=== PATIENT | female | born 1985 | race American Indian/Alaskan Native ===

== ENCOUNTER 2020-10-13 06:14 | Observation (INO) | payer BC ==
[2020-10-13 07:55] LABS: Basophils % (Auto) 0.6 % (0.0-1.8); Eosinophils % (Auto) 0.3 % (0.0-4.3); Hemoglobin 14.1 gm/dl (10.1-14.3); Lymphocytes # (Auto) 1.5 K/mm3 (1.2-5.4); Lymphocytes % (Auto) 18.6 % (13.4-35.0); Mean Corpuscular HGB Conc 34 % (30-34); Mean Corpuscular Volume 85 fl (79-97); Monocytes # (Auto) 0.4 K/mm3 (0.0-0.8); Platelet Count 160 K/mm3 (140-440); Red Blood Count 4.91 M/mm3 (3.65-5.03); Red Cell Distribution Width 13.7 % (13.2-15.2)
[2020-10-13 08:13] LABS: Albumin 4.5 g/dL (3.9-5); Calcium 9.5 mg/dL (8.4-10.2)
[2020-10-13 08:19] LABS: Bilirubin,Urine NEG (Negative); Blood,Urine NEG (Negative); Color,Urine Yellow (Yellow); Protein,Urine <15 mg/dL mg/dL (Negative); Urobilinogen,Urine < 2.0 mg/dL (<2.0)
[2020-10-13 08:24] LABS: HCG Qualitative,Urine Negative (Negative)
[2020-10-13] MEDS ORDERED: ONDANSETRON 4 MG/2 ML INJ IV ONE ×2 (08:28→10:57)
[2020-10-13] MEDS ORDERED: FAMOTIDINE 20 MG/2 ML INJ IV ONE (08:28)
[2020-10-13] MEDS ORDERED: MORPHINE 4 MG/1 ML INJ IV ONE (08:28)
[2020-10-13] MEDS ORDERED: DICYCLOMINE 20 MG TAB PO ONE (08:28)
[2020-10-13] MEDS ORDERED: SODIUM CHLORIDE 0.9% 1000 ML 1,000 ML IV ONE (08:28)
--- NOTE | 2020-10-13 09:21 | Emergency Department Report ---
ED Abdominal Pain HPI - General Chief Complaint: Abdominal Pain Stated Complaint: ABD PAIN Time Seen by Provider: 10/13/20 08:22 Source: patient Mode of arrival: Ambulatory Limitations: No Limitations - History of Present Illness Initial Comments: This is a 35-year-old female nontoxic, well nourished in appearance, no acute signs of distress presents to the ED with c/o of nausea and vomiting and abdominal pain several days. Patient describes vomiting as food content and yellow gastric acid. Patient describes abdominal pain as cramping and aching with level of 3/10 diffuse. Patient denies chest pain, short of breath, fever, hemoptysis, blood in stool, chills, headache, stiff neck, numbness or tingling. Patient denies any diarrhea or constipation. Denies any blood in stool. Patient denies any recent travels. Patient denies any allergies. MD Complaint: abdominal pain -: days(s) Location: diffuse Radiation: none Migration to: no migration Severity: mild Severity scale (0 -10): 8 Quality: cramping, aching Consistency: constant Improves With: nothing Worsens With: nothing Associated Symptoms: nausea, vomiting. denies: diarrhea, fever, chills, constipation, dysuria, hematemesis, hematochezia, melena, hematuria, anorexia, syncope - Related Data Home Medications Medication Instructions Recorded Confirmed Last Taken No Known Home Medications [No 10/13/20 10/13/20 Unknown Reported Home Medications] Allergies Allergy/AdvReac Type Severity Reaction Status Date / Time No Known Allergies Allergy Unverified 10/13/20 07:27 ED Review of Systems ROS: Stated complaint: ABD PAIN Other details as noted in HPI Constitutional: denies: chills, fever Eyes: denies: eye pain, eye discharge, vision change ENT: denies: ear pain, throat pain Respiratory: denies: cough, shortness of breath, wheezing Cardiovascular: denies: chest pain, palpitations Endocrine: no symptoms reported Gastrointestinal: abdominal pain, nausea, vomiting. denies: diarrhea, constipation, hematemesis, melena, hematochezia Genitourinary: denies: urgency, dysuria, discharge Musculoskeletal: denies: back pain, joint swelling, arthralgia Skin: denies: rash, lesions Neurological: denies: headache, weakness, paresthesias Psychiatric: denies: anxiety, depression Hematological/Lymphatic: denies: easy bleeding, easy bruising ED Past Medical Hx - Past Medical History Previous Medical History?: No - Surgical History Past Surgical History?: No - Social History Smoking Status: Never Smoker Substance Use Type: None - Medications Home Medications: Home Medications Medication Instructions Recorded Confirmed Last Taken Type No Known Home Medications [No 10/13/20 10/13/20 Unknown History Reported Home Medications] ED Physical Exam - General Limitations: No Limitations General appearance: alert, in no apparent distress - Head Head exam: Present: atraumatic, normocephalic - Eye Eye exam: Present: normal appearance - Neck Neck exam: Present: normal inspection, full ROM. Absent: tenderness, meningismus, lymphadenopathy - Respiratory Respiratory exam: Present: normal lung sounds bilaterally. Absent: respiratory distress, wheezes, rales, rhonchi, stridor, chest wall tenderness, accessory muscle use, decreased breath sounds, prolonged expiratory - Cardiovascular Cardiovascular Exam: Present: regular rate, normal rhythm, normal heart sounds. Absent: irregular rhythm, systolic murmur, diastolic murmur, rubs, gallop - GI/Abdominal GI/Abdominal exam: Present: soft, tenderness (RLQ pain), normal bowel sounds. Absent: distended, guarding, rebound, rigid, diminished bowel sounds - Extremities Exam Extremities exam: Present: normal inspection, full ROM, normal capillary refill. Absent: tenderness - Back Exam Back exam: Present: normal inspection, full ROM. Absent: tenderness, CVA tenderness (R), CVA tenderness (L), muscle spasm, paraspinal tenderness, vertebral tenderness, rash noted - Neurological Exam Neurological exam: Present: alert, oriented X3, normal gait - Psychiatric Psychiatric exam: Present: normal affect, normal mood - Skin Skin exam: Present: warm, dry, intact, normal color. Absent: rash ED Course Vital Signs 10/13/20 07:27 Temperature 98.3 F Pulse Rate 49 L Respiratory 18 Rate Blood Pressure 127/77 O2 Sat by Pulse 100 Oximetry - Reevaluation(s) Reevaluation #1: 10/13/20 09:39 Patient is speaking in full sentences with no signs of distress noted. - Consultations Consultation #1: 10/13/20 11:13 Patient has been consulted with Dr. Reyes about patient history, physical exam, and labs/CT results and agrees for admission. Consultation #2: 10/13/20 11:14 Patient has been consulted with Dr. Jeronimo (hospitalist) about patient history, physical exam, and labs/CT results and accepts patient to services. ED Medical Decision Making - Lab Data Result diagrams: 10/13/20 07:43 10/13/20 07:43 Lab Results 10/13/20 10/13/20 10/13/20 Range/Units 07:43 07:43 Unknown WBC 7.9 (4.5-11.0) K/mm3 RBC 4.91 (3.65-5.03) M/mm3 Hgb 14.1 (10.1-14.3) gm/dl Hct 42.0 (30.3-42.9) % MCV 85 (79-97) fl MCH 29 (28-32) pg MCHC 34 (30-34) % RDW 13.7 (13.2-15.2) % Plt Count 160 (140-440) K/mm3 Lymph % (Auto) 18.6 (13.4-35.0) % Mchenry % (Auto) 5.0 (0.0-7.3) % Eos % (Auto) 0.3 (0.0-4.3) % Baso % (Auto) 0.6 (0.0-1.8) % Lymph # (Auto) 1.5 (1.2-5.4) K/mm3 Mchenry # (Auto) 0.4 (0.0-0.8) K/mm3 Eos # (Auto) 0.0 (0.0-0.4) K/mm3 Baso # (Auto) 0.0 (0.0-0.1) K/mm3 Seg Neutrophils % 75.5 H (40.0-70.0) % Seg Neutrophils # 6.0 (1.8-7.7) K/mm3 Sodium 133 L (137-145) mmol/L Potassium 4.1 (3.6-5.0) mmol/L Chloride 102.2 (98-107) mmol/L Carbon Dioxide 24 (22-30) mmol/L Anion Gap 11 mmol/L BUN 12 (7-17) mg/dL Creatinine 1.1 (0.6-1.2) mg/dL Estimated GFR 56 ml/min BUN/Creatinine Ratio 11 % Glucose 123 H (65-100) mg/dL Calcium 9.5 (8.4-10.2) mg/dL Total Bilirubin 0.90 (0.1-1.2) mg/dL AST 18 (5-40) units/L ALT 17 (7-56) units/L Alkaline Phosphatase 74 (35-129) units/L Total Protein 8.2 (6.3-8.2) g/dL Albumin 4.5 (3.9-5) g/dL Albumin/Globulin Ratio 1.2 % Urine Color Yellow (Yellow) Urine Turbidity Clear (Clear) Urine pH 5.0 (5.0-7.0) Ur Specific Welcome 1.013 (1.003-1.030) Urine Protein <15 mg/dl (Negative) mg/dL Urine Glucose (UA) Neg (Negative) mg/dL Urine Ketones Neg (Negative) mg/dL Urine Blood Neg (Negative) Urine Nitrite Neg (Negative) Urine Bilirubin Neg (Negative) Urine Urobilinogen < 2.0 (<2.0) mg/dL Ur Leukocyte Esterase Neg (Negative) Urine WBC (Auto) 1.0 (0.0-6.0) /HPF Urine RBC (Auto) 2.0 (0.0-6.0) /HPF U Epithel Cells (Auto) 2.0 (0-13.0) /HPF Urine HCG, Qual Negative (Negative) - Radiology Data Referring Physician: CINTHYA GOLDMAN Patient Name: JOSE JEONG Date of : 1985 Sex: Female Report Date: 2020-10-13 Report Status: [place] [address] Cat Scan Report Signed Patient: JOSE JEONG MR#: [id number] : 1985 Acct:[id number] Age/Sex: 35 / F ADM Date: 10/13/20 Loc: ED Attending Dr: Ordering Physician: CINTHYA GOLDMAN NP Date of Service: 10/13/20 Procedure(s): CT abdomen pelvis w con Accession Number(s): [id number] cc: CINTHYA GOLDMAN NP CT ABDOMEN AND PELVIS WITH CONTRAST INDICATION / CLINICAL INFORMATION: MAIN. Right lower quadrant pain with nausea and vomiting for one day. TECHNIQUE: Axial CT images were obtained through the abdomen and pelvis after IV contrast. All CT scans at this location are performed using CT dose reduction for ALARA by means of automated exposure control. COMPARISON: None available. FINDINGS: LOWER CHEST: No significant abnormality. LIVER: No significant abnormality. GALLBLADDER: No significant abnormality. BILE DUCTS: No significant abnormality. PANCREAS: No significant abnormality. SPLEEN: No significant abnormality. ADRENALS: No significant abnormality. RIGHT KIDNEY / URETER: No significant abnormality. LEFT KIDNEY / URETER: No significant abnormality. STOMACH / SMALL BOWEL: No significant abnormality. COLON: No significant abnormality. APPENDIX: Retrocecal appendix. Inflammatory changes are noted of the appendix which is fluid filled and distended measuring 1.2 cm in cross sectional diameter. There is moderate periappendiceal fat stranding. No evidence of secondary complication. PERITONEUM: No free fluid. No free air. No fluid collection. LYMPH NODES: No significant adenopathy. AORTA / ARTERIES: No significant abnormality. IVC / VEINS: No significant abnormality. URINARY BLADDER: No significant abnormality. REPRODUCTIVE ORGANS: IUD is noted. Small 1.2 cm uterine fibroid. ADDITIONAL FINDINGS: None. SKELETAL SYSTEM: No significant abnormality. IMPRESSION: 1. Acute uncomplicated appendicitis. No evidence of pneumoperitoneum or complex peritoneal fluid collection. Signer Name: Ivonne Bernard MD Signed: 10/13/2020 10:18 AM Workstation Name: [email or web address] [id number] Transcribed By: Dictated By: IVONNE BERNARD Electronically Authenticated By: IVONNE BERNARD Signed Date/Time: 10/13/20 1018 DD/ 1014 TD/TT: - Medical Decision Making 36-year-old female that presents with acute appendicitis. Patient is stable and was examined by me. Patient admitted with hospitalist. Patient consulted with surgery which stated patient will be going to surgery. Patient placed on n.p.o. IV antibiotics initiated. Vital signs stable. At time of admission, the patient does not seem toxic or ill in appearance. No acute signs of distress noted. Patient agrees to admission treatment plan of care. No further questions noted by the patient. Critical care attestation.: If time is entered above; I have spent that time in minutes in the direct care of this critically ill patient, excluding procedure time. ED Disposition Clinical Impression: Acute appendicitis Qualifiers: Acute appendicitis type: unspecified acute appendicitis type Qualified Code(s): K35.80 - Unspecified acute appendicitis Disposition: DC-09 OP ADMIT IP TO THIS HOSP Is pt being admited?: Yes Condition: Stable Instructions: Abdominal Pain (ED)
--- NOTE | 2020-10-13 10:22 | Cat Scan Report ---
CT ABDOMEN AND PELVIS WITH CONTRAST INDICATION / CLINICAL INFORMATION: MAIN. Right lower quadrant pain with nausea and vomiting for one day. TECHNIQUE: Axial CT images were obtained through the abdomen and pelvis after IV contrast. All CT scans at this location are performed using CT dose reduction for ALARA by means of automated exposure control. COMPARISON: None available. FINDINGS: LOWER CHEST: No significant abnormality. LIVER: No significant abnormality. GALLBLADDER: No significant abnormality. BILE DUCTS: No significant abnormality. PANCREAS: No significant abnormality. SPLEEN: No significant abnormality. ADRENALS: No significant abnormality. RIGHT KIDNEY / URETER: No significant abnormality. LEFT KIDNEY / URETER: No significant abnormality. STOMACH / SMALL BOWEL: No significant abnormality. COLON: No significant abnormality. APPENDIX: Retrocecal appendix. Inflammatory changes are noted of the appendix which is fluid filled a nd distended measuring 1.2 cm in cross sectional diameter. There is moderate periappendiceal fat stra nding. No evidence of secondary complication. PERITONEUM: No free fluid. No free air. No fluid collection. LYMPH NODES: No significant adenopathy. AORTA / ARTERIES: No significant abnormality. IVC / VEINS: No significant abnormality. URINARY BLADDER: No significant abnormality. REPRODUCTIVE ORGANS: IUD is noted. Small 1.2 cm uterine fibroid. ADDITIONAL FINDINGS: None. SKELETAL SYSTEM: No significant abnormality. IMPRESSION: 1. Acute uncomplicated appendicitis. No evidence of pneumoperitoneum or complex peritoneal fluid dorota ection. Signer Name: Jude Mcqueen MD Signed: 10/13/2020 10:18 AM Workstation Name: [email or web address]
[2020-10-13] MEDS ORDERED: PIPERACIL/TAZOBACTA 4.5/NS 100 4.5 GM/100 ML VIAL IV ONE (10:32)
[2020-10-13] MEDS ORDERED: ONDANSETRON 4 MG/2 ML INJ ONE ×2 (10:57→12:49)
--- NOTE | 2020-10-13 11:36 | History and Physical Report ---
History of Present Illness Chief complaint: My stomach hurts History of present illness: 35 YO Female with No PMH presents to ED for evaluation. Patient states that she has experienced abdominal pain over the past week with persistent symptoms over the same timeframe. Patient states that pain is 78/10, initially intermittent, but is now more constant. Patient acknowledges nausea, multiple episodes of vomiting, as well as inability to tolerate oral intake. Patient transported to [facility] via private vehicle for further care and evaluation of the aforementioned symptoms. Patient seen and evaluated in the emergency department. All lab and imaging studies reviewed. Patient underwent CT scan of the abdomen and pelvis and was found to have acute appendicitis. Patient placed in observation status and admitted to surgical floor. Surgical team consulted in ED. Patient is pending surgical intervention. Patient denies fever, chills, chest pain, palpitation, productive cough, skin rash, recent ill contacts, ingestion of food/water from new or different sources, or known exposure to COVID-19. No prior admission for review. No medication listed at time of admission for reconciliation. Past History Past Medical History: No medical history, other (Reviewed) Past Surgical History: No surgical history, Other (Reviewed) Social history: single. denies: smoking, alcohol abuse, prescription drug abuse Family history: hypertension Medications and Allergies Allergies Allergy/AdvReac Type Severity Reaction Status Date / Time No Known Allergies Allergy Unverified 10/13/20 07:27 Home Medications Medication Instructions Recorded Confirmed Last Taken Type No Known Home Medications [No 10/13/20 10/13/20 Unknown History Reported Home Medications] Review of Systems Constitutional: no weight loss, no weight gain, no fever, no chills Ears, nose, mouth and throat: no ear pain, no ear discharge, no tinnitis, no decreased hearing Breasts: no change in shape, no swelling, no mass Cardiovascular: no chest pain, no orthopnea, no palpitations, no rapid/irregular heart beat Respiratory: no cough, no cough with sputum Gastrointestinal: abdominal pain, nausea, vomiting, no constipation, no change in bowel habits, no BRBPR, no melena, no hematochezia Genitourinary Female: no pelvic pain, no flank pain, no menorrhagia, no dysuria, no urinary frequency, no urgency Rectal: no pain, no incontinence Musculoskeletal: no neck stiffness, no neck pain, no shooting arm pain, no arm numbness/tingling Integumentary: no rash, no pruritis, no redness, no sores, no wounds Neurological: no transient paralysis, no paralysis, no weakness, no parathesias, no numbness, no tingling Psychiatric: no anxiety, no change in sleep habits, no insomnia, no hypersomnia, no change in libido, no suicidal ideation, no disorientation Endocrine: no cold intolerance, no polyphagia, no excessive thirst, no polyuria, no nocturia Hematologic/Lymphatic: no easy bruising, no easy bleeding, no lymphadenopathy, no lymphedema Allergic/Immunologic: no persistent infections, no anaphylaxis Exam - Constitutional Vitals: Temp Pulse Resp BP Pulse Ox 98.3 F 49 L 18 127/77 100 10/13/20 07:27 10/13/20 07:27 10/13/20 07:27 10/13/20 07:27 10/13/20 07:27 General appearance: Present: mild distress - EENT Eyes: Present: PERRL ENT: hearing intact, clear oral mucosa - Neck Neck: Present: supple, normal ROM - Respiratory Respiratory effort: normal Respiratory: bilateral: CTA - Cardiovascular Heart Sounds: Present: S1 & S2. Absent: rub, click - Extremities Extremities: pulses symmetrical, No edema Peripheral Pulses: within normal limits - Abdominal General gastrointestinal: Present: soft, tender, non-distended, normal bowel sounds Localized gastrointestinal: tender: RLQ Female genitourinary: Present: normal - Integumentary Integumentary: Present: clear, warm, dry - Musculoskeletal Musculoskeletal: gait normal, strength equal bilaterally - Psychiatric Psychiatric: appropriate mood/affect, intact judgment & insight - Neurologic Neurologic: CNII-XII intact, moves all extremities Results - Labs CBC & Chem 7: 10/13/20 07:43 10/13/20 07:43 Labs: Abnormal lab results 10/13/20 10/13/20 Range/Units 07:43 07:43 Seg Neutrophils % 75.5 H (40.0-70.0) % Sodium 133 L (137-145) mmol/L Glucose 123 H (65-100) mg/dL Assessment and Plan - Patient Problems (1) Acute appendicitis Current Visit: Yes Status: Acute Qualifiers: Acute appendicitis type: unspecified acute appendicitis type Qualified Code(s): K35.80 - Unspecified acute appendicitis Plan to address problem: CBC, CMP, chest x-ray, urinalysis, CT scan abdomen and pelvis, IV antibiotic therapy, surgical team consulted, patient is pending surgical intervention at this time. (2) DVT prophylaxis Current Visit: Yes Status: Acute Plan to address problem: SCD to bilateral lower extremities while in bed, patient is ambulatory
[2020-10-13] MEDS ORDERED: MORPHINE 2 MG/1 ML INJ IV PRN (11:37)
[2020-10-13] MEDS ORDERED: ALBUTEROL 2.5 MG/3 ML NEBU IH PRN (11:37)
[2020-10-13] MEDS ORDERED: ONDANSETRON 4 MG/2 ML INJ IV PRN ×2 (11:37→15:09)
[2020-10-13] MEDS ORDERED: ACETAMINOPHEN 325 MG TAB PO PRN (11:37)
[2020-10-13] MEDS ORDERED: BUPIVACAINE/PF (0.5%) 5 MG/1 ML 30 ML VIAL INFILTRATI ONE ×3 (12:25→14:14)
[2020-10-13] MEDS ORDERED: LIDOCAINE (1%) 10 MG/1 ML VIAL 20 ML MDV ONE (12:25)
--- NOTE | 2020-10-13 12:35 | Consultation ---
History of Present Illness Consult date: 10/13/20 Reason for consult: abdominal pain (Pt with abd pain (RLQ) for one day) Medications and Allergies Allergies Allergy/AdvReac Type Severity Reaction Status Date / Time No Known Allergies Allergy Unverified 10/13/20 07:27 Home Medications Medication Instructions Recorded Confirmed Last Taken Type No Known Home Medications [No 10/13/20 10/13/20 Unknown History Reported Home Medications] Active Meds: Active Medications Acetaminophen (Tylenol) 650 mg PO Q4H PRN PRN Reason: Pain MILD(1-3)/Fever >100.5/PRETTY Albuterol (Proventil) 2.5 mg IH Q4HRT PRN PRN Reason: Shortness Of Breath Hydromorphone HCl (Dilaudid) 0.5 mg IV Q6H PRN PRN Reason: Pain , Severe (7-10) Sodium Chloride (Nacl 0.9% 1000 Ml) 1,000 mls @ 125 mls/hr IV DIRECT KATLYN Morphine Sulfate (Morphine) 2 mg IV Q4H PRN PRN Reason: Pain, Moderate (4-6) Ondansetron HCl (Zofran) 4 mg IV Q8H PRN PRN Reason: Nausea And Vomiting Sodium Chloride (Sodium Chloride Flush Syringe 10 Ml) 10 ml IV BID KATLYN Sodium Chloride (Sodium Chloride Flush Syringe 10 Ml) 10 ml IV PRN PRN PRN Reason: LINE FLUSH Exam Vital Signs Temp Pulse Resp BP Pulse Ox 98.3 F 49 L 18 127/77 100 10/13/20 07:27 10/13/20 07:27 10/13/20 07:27 10/13/20 07:27 10/13/20 07:27 - Abdomen Abdomen: Present: soft, tender, bowel sounds normal. Absent: distended, surgical scars (+TTP RLQ; no peritoneal signs) Results - Labs 10/13/20 07:43 10/13/20 07:43 Abnormal lab results 10/13/20 10/13/20 Range/Units 07:43 07:43 Seg Neutrophils % 75.5 H (40.0-70.0) % Sodium 133 L (137-145) mmol/L Glucose 123 H (65-100) mg/dL Diabetes panel 10/13/20 Range/Units 07:43 Sodium 133 L (137-145) mmol/L Potassium 4.1 (3.6-5.0) mmol/L Chloride 102.2 (98-107) mmol/L Carbon Dioxide 24 (22-30) mmol/L BUN 12 (7-17) mg/dL Creatinine 1.1 (0.6-1.2) mg/dL Glucose 123 H (65-100) mg/dL Calcium 9.5 (8.4-10.2) mg/dL AST 18 (5-40) units/L ALT 17 (7-56) units/L Alkaline Phosphatase 74 (35-129) units/L Total Protein 8.2 (6.3-8.2) g/dL Albumin 4.5 (3.9-5) g/dL Calcium panel 10/13/20 Range/Units 07:43 Calcium 9.5 (8.4-10.2) mg/dL Albumin 4.5 (3.9-5) g/dL Pituitary panel 10/13/20 Range/Units 07:43 Sodium 133 L (137-145) mmol/L Potassium 4.1 (3.6-5.0) mmol/L Chloride 102.2 (98-107) mmol/L Carbon Dioxide 24 (22-30) mmol/L BUN 12 (7-17) mg/dL Creatinine 1.1 (0.6-1.2) mg/dL Glucose 123 H (65-100) mg/dL Calcium 9.5 (8.4-10.2) mg/dL Adrenal panel 10/13/20 Range/Units 07:43 Sodium 133 L (137-145) mmol/L Potassium 4.1 (3.6-5.0) mmol/L Chloride 102.2 (98-107) mmol/L Carbon Dioxide 24 (22-30) mmol/L BUN 12 (7-17) mg/dL Creatinine 1.1 (0.6-1.2) mg/dL Glucose 123 H (65-100) mg/dL Calcium 9.5 (8.4-10.2) mg/dL Total Bilirubin 0.90 (0.1-1.2) mg/dL AST 18 (5-40) units/L ALT 17 (7-56) units/L Alkaline Phosphatase 74 (35-129) units/L Total Protein 8.2 (6.3-8.2) g/dL Albumin 4.5 (3.9-5) g/dL Assessment and Plan Acute appendicitis-- to OR for lap appy Risks d/w pt to include abscess, stump leak, hernia, blood clots, etc
[2020-10-13] MEDS ORDERED: ePHEDrine SULFATE 50 MG/1 ML INJ ONE (12:36)
[2020-10-13] MEDS ORDERED: ROCURONIUM 50 MG/5 ML INJ IV ONE (12:49)
[2020-10-13] MEDS ORDERED: propofoL 200 MG/20 ML VIAL IV ONE (12:49)
[2020-10-13] MEDS ORDERED: dexAMETHasone 20 MG/5 ML VIAL ONE (12:49)
[2020-10-13] MEDS ORDERED: GLYCOPYRROLATE 0.4 MG/2 ML INJ ONE ×2 (12:49→13:00)
[2020-10-13] MEDS ORDERED: SUCCINYLCHOLINE CHLORIDE 200 MG/10 ML INJ MDV ONE (12:49)
[2020-10-13] MEDS ORDERED: NEOSTIGMINE 10MG/10 ML INJ MDV ONE (12:49)
[2020-10-13] MEDS ORDERED: fentaNYL 100 MCG/2 ML INJ ONE (12:50)
[2020-10-13] MEDS ORDERED: LIDOCAINE MPF (2%) 20 MG/1 ML VIAL 5 ML ONE (13:00)
--- NOTE | 2020-10-13 13:20 | Anesthesia Consultation ---
Anesthesia Consult and Med Hx Date of service: 10/13/20 - Airway Anesthetic Teeth Evaluation: Good ROM Head & Neck: Adequate Mental/Hyoid Distance: Adequate Mallampati Class: Class II Intubation Access Assessment: Good - Pre-Operative Health Status ASA Pre-Surgery Classification: ASA1, Emergency Proposed Anesthetic Plan: General - Pulmonary Hx Smoking: No Hx Asthma: No Hx Respiratory Symptoms: No SOB: No COPD: No Home Oxygen Therapy: No Hx Pneumonia: No Hx Sleep Apnea: No - Cardiovascular System Hx Hypertension: No Hx Coronary Artery Disease: No Hx Heart Attack/AMI: No Hx Angina: No Hx Percutaneous Transluminal Coronary Angioplasty (PTCA): No Hx Cardia Arrhythmia: No Hx Pacemaker: No Hx Internal Defibrillator: No Hx Valvular Heart Disease: No Hx Heart Murmur: No Hx Peripheral Vascular Disease: No - Central Nervous System Hx Neuromuscular Disorder: No Hx Seizures: No CVA: No Hx Back Pain: No Hx Psychiatric Problems: No - Gastrointestinal Hx Ulcer: No Hx Gastroesophageal Reflux Disease: No - Endocrine Hx Renal Disease: No Hx End Stage Renal Disease: No Hx Cirrhosis: No Hx Liver Disease: No Hx Insulin Dependent Diabetes: No Hx Non-Insulin Dependent Diabetes: No Hx Thyroid Disease: No Hx Hypothyroidism: No Hx Hyperthyroidism: No - Hematic Hx Anemia: No Hx Sickle Cell Disease: No - Other Systems Hx Alcohol Use: Yes (socially ) Hx Substance Use: No Hx Cancer: No Hx Obesity: No
--- NOTE | 2020-10-13 13:21 | Anesthesia Day of Surgery ---
Anesthesia Day of Surgery - Day of Surgery Patient Examined: Yes Patient H&P Reviewed: Yes Patient is NPO: Yes
--- NOTE | 2020-10-13 13:26 | Progress Note ---
Subjective Date of service: 10/13/20 Narrative: pt looks good; c/o back pain; minimal to no abd discomfort Pt begging to be moved/placed in chair-- apparently RN had refused to do so as there was no activity order placed. 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 Thoracic aorta abnormality on CT chest-- see Dr. Del Valle's note; NTD Chronic back pain--- RN instructed to get pt out of bed to chair luis Objective Vital Signs - 12hr 10/13/20 10/13/20 07:27 13:06 Temperature 98.3 F Pulse Rate 49 L 51 L Respiratory 18 16 Rate Blood Pressure 127/77 Blood Pressure 121/71 [Left] O2 Sat by Pulse 100 100 Oximetry - Labs 10/13/20 07:43 10/13/20 07:43 Diabetes panel 10/13/20 Range/Units 07:43 Sodium 133 L (137-145) mmol/L Potassium 4.1 (3.6-5.0) mmol/L Chloride 102.2 (98-107) mmol/L Carbon Dioxide 24 (22-30) mmol/L BUN 12 (7-17) mg/dL Creatinine 1.1 (0.6-1.2) mg/dL Glucose 123 H (65-100) mg/dL Calcium 9.5 (8.4-10.2) mg/dL AST 18 (5-40) units/L ALT 17 (7-56) units/L Alkaline Phosphatase 74 (35-129) units/L Total Protein 8.2 (6.3-8.2) g/dL Albumin 4.5 (3.9-5) g/dL Calcium panel 10/13/20 Range/Units 07:43 Calcium 9.5 (8.4-10.2) mg/dL Albumin 4.5 (3.9-5) g/dL Pituitary panel 10/13/20 Range/Units 07:43 Sodium 133 L (137-145) mmol/L Potassium 4.1 (3.6-5.0) mmol/L Chloride 102.2 (98-107) mmol/L Carbon Dioxide 24 (22-30) mmol/L BUN 12 (7-17) mg/dL Creatinine 1.1 (0.6-1.2) mg/dL Glucose 123 H (65-100) mg/dL Calcium 9.5 (8.4-10.2) mg/dL Adrenal panel 10/13/20 Range/Units 07:43 Sodium 133 L (137-145) mmol/L Potassium 4.1 (3.6-5.0) mmol/L Chloride 102.2 (98-107) mmol/L Carbon Dioxide 24 (22-30) mmol/L BUN 12 (7-17) mg/dL Creatinine 1.1 (0.6-1.2) mg/dL Glucose 123 H (65-100) mg/dL Calcium 9.5 (8.4-10.2) mg/dL Total Bilirubin 0.90 (0.1-1.2) mg/dL AST 18 (5-40) units/L ALT 17 (7-56) units/L Alkaline Phosphatase 74 (35-129) units/L Total Protein 8.2 (6.3-8.2) g/dL Albumin 4.5 (3.9-5) g/dL
--- NOTE | 2020-10-13 13:33 | Progress Note ---
Assessment and Plan last note on wrong pt-- sorry. Subjective Date of service: 10/13/20 Objective Vital Signs - 12hr 10/13/20 10/13/20 07:27 13:06 Temperature 98.3 F Pulse Rate 49 L 51 L Respiratory 18 16 Rate Blood Pressure 127/77 Blood Pressure 121/71 [Left] O2 Sat by Pulse 100 100 Oximetry - Labs 10/13/20 07:43 10/13/20 07:43 Diabetes panel 10/13/20 Range/Units 07:43 Sodium 133 L (137-145) mmol/L Potassium 4.1 (3.6-5.0) mmol/L Chloride 102.2 (98-107) mmol/L Carbon Dioxide 24 (22-30) mmol/L BUN 12 (7-17) mg/dL Creatinine 1.1 (0.6-1.2) mg/dL Glucose 123 H (65-100) mg/dL Calcium 9.5 (8.4-10.2) mg/dL AST 18 (5-40) units/L ALT 17 (7-56) units/L Alkaline Phosphatase 74 (35-129) units/L Total Protein 8.2 (6.3-8.2) g/dL Albumin 4.5 (3.9-5) g/dL Calcium panel 10/13/20 Range/Units 07:43 Calcium 9.5 (8.4-10.2) mg/dL Albumin 4.5 (3.9-5) g/dL Pituitary panel 10/13/20 Range/Units 07:43 Sodium 133 L (137-145) mmol/L Potassium 4.1 (3.6-5.0) mmol/L Chloride 102.2 (98-107) mmol/L Carbon Dioxide 24 (22-30) mmol/L BUN 12 (7-17) mg/dL Creatinine 1.1 (0.6-1.2) mg/dL Glucose 123 H (65-100) mg/dL Calcium 9.5 (8.4-10.2) mg/dL Adrenal panel 10/13/20 Range/Units 07:43 Sodium 133 L (137-145) mmol/L Potassium 4.1 (3.6-5.0) mmol/L Chloride 102.2 (98-107) mmol/L Carbon Dioxide 24 (22-30) mmol/L BUN 12 (7-17) mg/dL Creatinine 1.1 (0.6-1.2) mg/dL Glucose 123 H (65-100) mg/dL Calcium 9.5 (8.4-10.2) mg/dL Total Bilirubin 0.90 (0.1-1.2) mg/dL AST 18 (5-40) units/L ALT 17 (7-56) units/L Alkaline Phosphatase 74 (35-129) units/L Total Protein 8.2 (6.3-8.2) g/dL Albumin 4.5 (3.9-5) g/dL
[2020-10-13] MEDS ORDERED: CISATRACURIUM 10 MG/5 ML INJ IV ONE (13:48)
[2020-10-13] MEDS ORDERED: HYDROmorphone 1 MG/1 ML INJ ONE ×2 (13:52→13:57)
[2020-10-13] MEDS ORDERED: LIDOCAINE (1%) 10 MG/1 ML VIAL 20 ML MDV INFILTRATI ONE ×2 (14:14)
[2020-10-13] MEDS ORDERED: SODIUM CHLORIDE 0.9% IRR 1,500 ML BOTTLE IR ONE (14:15)
[2020-10-13] MEDS ORDERED: HYDROmorphone 1 MG/1 ML INJ IV PRN (15:09)
--- NOTE | 2020-10-13 15:16 | Post Anesthesia Evaluation ---
- Post Anesthesia Evaluation Patient Participated: Yes Airway Patent: Yes Stable Respiratory Function: Yes Nausea/Vomiting: No Temp > 96.8F: Yes Pain Manageable: Yes Adequeate Hydration: Yes Anesthesia Complications: No Block Receding Appropriately: Not Applicable Patient on Ventilator: No
[2020-10-13] MEDS: HYDROmorphone 1 MG/1 ML INJ IV PRN ×2 (16:10→23:56)
[2020-10-13] MEDS: SODIUM CHLORIDE 0.9% 1000 ML 1,000 ML IV SCH (16:26)
[2020-10-14] MEDS: SODIUM CHLORIDE 0.9% 1000 ML 1,000 ML IV SCH (02:00)
[2020-10-14] MEDS: HYDROmorphone 1 MG/1 ML INJ IV PRN (05:41)
--- NOTE | 2020-10-14 10:47 | Progress Note ---
Assessment and Plan s/p lap appy No evid complication. Ok to discharge (RN to [facility] hospitalist) d/c instructions: 1. Ok to shower 2. No lifting>30 pounds or strenuous exercise for 6 weeks. 3. Regular diet 4. Follow up likely to occur by phone due to pandemic. Subjective Date of service: 10/14/20 Patient Reports: Positive: no new complaints, pain is less, tolerating a regular diet, flatus (ambulating/urinating) Objective Vital Signs - 12hr 10/13/20 10/14/20 10/14/20 23:42 04:58 06:59 Temperature 98.5 F 98.5 F 98.5 F Pulse Rate 65 49 L 45 L Respiratory 12 12 18 Rate Blood Pressure 121/62 105/61 95/51 O2 Sat by Pulse 96 96 94 Oximetry - Abdomen soft, tender, bowel sounds normal, wound (wounds c/d/i) - Labs 10/13/20 07:43 10/13/20 07:43
[2020-10-14 11:10] VITALS: BP 114/70
--- NOTE | 2020-10-14 12:39 | Discharge Summary ---
Providers - Providers Date of Admission: 10/13/20 12:14 Attending physician: NAIF ZUNIGA 10/13/20 11:39 Consult to Physician [CONS] Routine Comment: Consulting Provider: KOBE HUMPHREY Physician Instructions: Reason For Exam: acute appendicitis Primary care physician: [employer] Hospitalization Condition: Stable - Discharge Diagnoses (1) Acute appendicitis Status: Acute Qualifiers: Acute appendicitis type: unspecified acute appendicitis type Qualified Code(s): K35.80 - Unspecified acute appendicitis (2) DVT prophylaxis Status: Acute Exam - Constitutional Vitals: Temp Pulse Resp BP Pulse Ox 98.8 F 49 L 18 114/70 100 10/14/20 10:51 10/14/20 10:51 10/14/20 10:51 10/14/20 10:51 10/14/20 10:51 Plan Follow up with: PRIMARY CARE, [Primary Care Provider] - 3-5 Days Prescriptions: Sennosides/Docusate Sodium [Cvs Senna Plus Tablet] 1 each PO QHS #12 tablet oxyCODONE /ACETAMINOPHEN [Percocet 5/325] 1 tab PO Q6HR PRN #20 tablet PRN Reason: Pain Ondansetron [Zofran Odt] 4 mg PO Q8HR #12 tab.rapdis
--- NOTE | 2020-10-14 13:56 | Operative Report ---
STAFF PHYSICIAN: Jose Alberto Reyes MD. PREOPERATIVE DIAGNOSIS: Acute appendicitis. POSTOPERATIVE DIAGNOSIS: Acute appendicitis. OPERATION PERFORMED: Laparoscopic appendectomy. INDICATIONS: A 35-year-old female with signs and symptoms and radiologic evidence consistent with appendicitis, brought to the operating room emergently. ANESTHESIA: General endotracheal anesthesia. SPECIMENS SENT: Appendix. FINDINGS: Acute suppurative nonperforated appendicitis. ESTIMATED BLOOD LOSS: Minimal. COMPLICATIONS: None. DRAINS: None. DESCRIPTION OF PROCEDURE: After informed consent was obtained, the patient was taken to the operating room, placed under general endotracheal anesthesia. The patient was prepped and draped in standard surgical fashion. Surgical timeout was performed. Routine antibiotic prophylaxis had been given appropriately. A curvilinear incision was made in the umbilicus. Dissection was carried down to and through the abdominal fascia using standard Gali trocar technique. Gali trocar was placed. Pneumoperitoneum was established. There were no signs of inadvertent intra-abdominal injury. Two 5 mm ports were placed in suprapubic and left lower quadrant under direct visualization without complication. The patient was placed in Trendelenburg left side down position. Cecum was identified as was the base of the appendix, it was not involved in the inflammation. A hole was made in the mesoappendix in this area and an [employer] vascular stapler was fired across the base of the appendix. We then dissected out this lateral retrocecal appendix, also having removed the terminal ileum, which was attached to the right lower quadrant pelvic wall, in order to fully evaluate all this. This was done mostly with blunt dissection, but also some electrocautery. We went away from the bowel. We then were able to tent up the mesoappendix and fired 2 [employer] vascular load staplers across the mesoappendix and placed the appendix into an Endobag, brought out through the umbilical port. We then evaluated and there was good hemostasis. There was good staple line across the cecum with good tissue quality. There was no evidence of bleeding or any other complication, small amount of irrigation was used and suctioned free. There was no other significant intra-abdominal abnormalities. We then removed the ports under direct visualization under low pneumoperitoneum without evidence of bleeding. Gali trocar was removed. Pneumoperitoneum was manually released. A #0 Vicryl was used to close the umbilical fascial defect. Local anesthesia was injected, 4-0 Monocryl was used to close the skin. Sterile dressings were applied. The patient was extubated and taken to recovery room in stable fashion. JOB# [id number] TYRESE/DARION
== END 2020-10-14 16:30 | disposition home or self-care (01) ==
LOC: ED 06:14 → 3A 12:14 → 3B-SURG 12:25
PROVIDERS: ADMIT Internal Medicine; ATTEND Internal Medicine
DX: K35.80 Unspecified acute appendicitis (principal); K55.9 Vascular disorder of intestine, unspecified; G89.29 Other chronic pain; M54.9 Dorsalgia, unspecified
CPT/HCPCS: 36415; 44970; 74177; 80053; 81001; 81025; 85025; 88304; 96361; 96365; 96366; 96375; 96376; 99285; G0378; J0330; J1100; J1170; J2270; J2405; J2543; J2704; J2710; J3010; J7030; Q9967